=== PATIENT | male | born 1965 | race Hispanic/Latino ===

== ENCOUNTER 2024-04-16 12:02 | Emergency (ER) | payer MEDICARE ==
[~2024-04-16] VITALS: Ht 180.3 cm; Wt 95.3 kg
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
[2024-04-16] MEDS ORDERED: KETO10TA2 PO (14:14)
[2024-04-16] MEDS ORDERED: CYCL10TA16 PO (14:14)
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
[2024-04-16] MEDS: ORPHENADRINE 60MG/2ML IM ONE (14:50)
[2024-04-16] MEDS: ketOROlac 30MG VIAL (30MG/ML) IM ONE (14:51)
[2024-04-16 15:01] VITALS: BP 159/87; PULSE 77; RESP 18; TEMP 98.1; O2SAT 97
== END 2024-04-16 15:07 | disposition home or self-care (01) ==
LOC: EDH 12:02
DX: M25.78 Osteophyte, vertebrae (principal); Z79.899 Other long term (current) drug therapy; Z98.890 Other specified postprocedural states; V89.2XXA Person injured in unspecified motor-vehicle accident, traffic, initial encounter; Y93.89 Activity, other specified; Y92.488 Other paved roadways as the place of occurrence of the external cause; Y99.8 Other external cause status
CPT/HCPCS: 99285; 70450; 72125; 72131; 72128; 96372 ×2; J1885; J2360